=== PATIENT | male | born 1960 | race Caucasian/White ===

== ENCOUNTER 2017-01-13 09:21 | Day surgery (SDC) | payer MEDICARE ==
[~2017-01-13] VITALS: Ht 188 cm; Wt 109.1 kg
[~2017-01-13 09:21] MED LIST: LIDOCAINE 1% (10mg/ml) 2ml SDV INJ ONE; LR 1,000 ML IV SCH; P-EP-93 PO
[2017-01-13 09:37] VITALS: Ht 188 cm; Wt 109.1 kg
[2017-01-13 09:38] VITALS: BP 116/79; PULSE 67; RESP 13; TEMP 97.9; O2SAT 96
[2017-01-13 10:29] VITALS: BP 101/70; PULSE 76; RESP 12; TEMP 97.9; O2SAT 96
--- NOTE | 2017-01-13 10:41 | ANESPREOP ---
Anesthesia Record Date and Time DATE: 01/13/17 TIME: 10:38 Pre-Op Diagnosis chg. in bowel habits Proposed Surgical Procedure COLONOSCOPY Allergies: Coded Allergies: ciprofloxacin (Verified Allergy, Unknown, 01/12/17) Ht/Wt/BMI Height: 6 ' 2.00 " Weight: 109.100 kg BMI: 30.9 kg/m2 Vital Signs Date Time Temp Pulse Resp B/P Pulse Ox O2 Delivery O2 Flow Rate FiO2 01/13/17 09:38 97.9 67 13 116/79 96 Room Air Medications Inpatient Medications Current Medications Medications (Trade) Dose Ordered Sig/Rajendra Start Time Stop Time Status Last Admin Dose Admin Lactated Ringer's (Lactated Ringers) 1,000 ml @ 30 mls/hr Q24H 01/13/17 07:00 01/13/17 10:14 30 MLS/HR Loratadine/Pseudoephedrine (Claritin-D 12 Hour Tablet) 1 Each Tab.er.12h, 1 TAB PO DAILY, (Reported) Last Taken: on 01/12/17 0800 Currently on Beta Nanette: No Medical/Surgical History Anesthesia PMH: Reports: Arthritis (hips & knees; left shoulder), Denies: Anesthesia Reactions (NO AIRWAY ISSUES), Blood Transfusion Reac, Cancer, Clotting Problems, Glaucoma, Renal Disease Smoking Status: Former smoker Has pt. smoked today?: No Use Chewing Tobacco?: No Second Hand Exposure: No Substance Use Type: does not use Substance last used: unknown Alcohol Intake: rarely Last Drink: unknown Past Surgical History Orthopedic Surgeries: Abdominal Surgeries: Yes - APPY, RT INGUINAL HERNIA REPAIR Genitourinary Surgeries: Cardiac Surgeries: Endocrine Surgeries: Reproductive Surgeries: Neurological Surgeries: Ear Surgeries: Nose Surgeries: Throat Surgeries: Yes - T&A Other Surgeries: Yes - Cataract OD Anesthesia Adverse Reactions: FOUND none Family Hx of Anesthesia Advers: none Hx of Motion Sickness: No Pertinent Findings EKG Rhythm: Sinus Rhythm Physical Exam Respiratory: Bilat breath sounds equal, Lungs clear Cardiovascular: FOUND Regular rate, rhythm, FOUND No murmur Airway Assessment Mallampati Score: II TMD: 3 Fingerbreadths Neck Extension: Good Teeth: Upper Dentures, Lower Dentures Overall Assessment: No Airway Concerns ASA: 1 Plan Anesthesia Plan: TIVA Discussion Discussed risks/options/alternatives of anesthesia and questions answered. Patient consents. Nursing pain assessment noted. Present: Spouse Attestation Statement Prior to the delivery of any anesthetic medication, I examined the patient, developed the plan, obtained the patient's consent and discussed the risk and benefits of the procedure with the patient/guardian. GORDON KHANNA CRNA Jan 13, 2017 10:41
[2017-01-13] MEDS ORDERED: LIDOCAINE 2% (20mg/ml) 5ml PF SDV ONE (10:56)
[2017-01-13] MEDS ORDERED: PROPOFOL 500mg 50 ML IV ONE (10:56)
[2017-01-13] MEDS ORDERED: FENTANYL 100mcg/2ml INJECTION ONE (11:15)
[2017-01-13 11:29] VITALS: BP 101/70; PULSE 76; RESP 12; TEMP 97.9; O2SAT 96
[2017-01-13 11:45] VITALS: BP 104/68; PULSE 62; RESP 20; O2SAT 96
[2017-01-13 12:00] VITALS: BP 103/70; PULSE 56; RESP 20; O2SAT 99
--- NOTE | 2017-01-13 12:00 | NUR ---
Report Report given to Leida Alamo RN at 1200, in which time RN assumes care of pt.
--- NOTE | 2017-01-13 13:14 | ANESPO ---
Post-Op Note Date 01/13/17 Time: 11:35 Status Pt Participated in Evaluation: Pt participated in person Vital Signs Date Time Temp Pulse Resp B/P Pulse Ox O2 Delivery O2 Flow Rate FiO2 01/13/17 12:00 56 20 103/70 99 Room Air 01/13/17 11:29 97.9 Respiratory Function: Airway patent Mental Status: Alert/oriented Pain Level Intensity: 0 Hydration: IV infusing Complications during Recovery None apparent Follow-Up Instructions Instructions Per Surgeon JUSTINO MALDONADO CRNA Jan 13, 2017 13:14
--- NOTE | 2017-01-13 19:37 | OPNOTEF ---
DATE OF SERVICE 01/13/2017 SURGEON Rory Power MD PREOPERATIVE DIAGNOSIS Colorectal cancer surveillance. POSTOPERATIVE DIAGNOSES Dr. Simons Colorectal cancer surveillance, sigmoid diverticulosis, colonic polyp x 2 located at 15 cm from the anal verge. PROCEDURE Colonoscopy with polypectomies via cold biopsy technique. ANESTHESIA TIVA BRIEF HISTORY/INDICATIONS Mr. Eaton is a 56-year-old gentleman who recently presented to my office as a result of a prior episode of some diarrhea/change in his bowel habits. By the time the patient had his office visit his bowel habits had returned to normal. With this prior history of some changes in his bowel habits as well as more to serve as a portion of his overall colorectal cancer valence, it was my recommendation that he should undergo a colonoscopy. Patient presents today to undergo this procedure. For completeness please refer to notes included in the patient's chart. FINDINGS Upon colonoscopy the patient was found to have a moderate number of diverticula within the sigmoid colon region. There was no evidence for angiodysplastic lesions or sierra malignancies. He was found to have two benign/diminutive-appearing colonic polyps at 15 cm from the anal verge. These polyps were removed in their entirety via cold biopsy technique. NARRATIVE OF PROCEDURE After informed consent was obtained the patient was brought to the endoscopy suite and placed on the table in left lateral decubitus position. Patient subsequently underwent total intravenous anesthesia by the nurse taximeter repairer at my request. Formal timeout was then completed. Next, a digital rectal exam was performed. Normal sphincter tone. No rectal masses were appreciated. An Olympus colonoscope was inserted into the anus and advanced through the lumen of the colon under direct visualization at all times until the cecum was ascertained. Triangulation of the tenia coli, ileocecal valve and appendiceal lumen were all visualized. The scope was slowly withdrawn, maintaining visualization of the lumen at all times. The entire colon was without evidence for angiodysplastic lesions or sierra malignancies. The patient was found to have a moderate number of diverticula within the sigmoid colon region. As the colonoscope was being withdrawn, two diminutive-appearing colonic polyps were identified at 15 cm from the anal verge. These polyps were only on the order of about 5 mm in diameter. Both polyps were removed in their entirety via cold biopsy technique and submitted for pathologic evaluation. The colonoscope was continued to be withdrawn back to the rectal vault. J-maneuver was performed. No worrisome perianal pathology was noted. Scope was allowed to straighten and was withdrawn through the anal verge. Patient tolerated the procedure without difficulty and was sent back to the preop area in stable condition. Will await biopsy results from today's two polypectomies and proceed accordingly with further recommendations thereafter. MUSTAPHA
== END 2017-01-13 12:20 | disposition home or self-care (01) ==
LOC: SCU 09:21
PROVIDERS: ATTEND Surgery
DX: K63.5 Polyp of colon (principal); K57.30 Diverticulosis of large intestine without perforation or abscess without bleeding; R19.4 Change in bowel habit; Z79.899 Other long term (current) drug therapy; Z87.891 Personal history of nicotine dependence
CPT/HCPCS: 45380; 82948; J3010; J7120